=== PATIENT | male | born 1955 | race African-American/Black ===

== ENCOUNTER 2016-10-31 02:46 | Emergency (ER) | payer MEDICARE ==
[~2016-10-31 02:46] MED LIST: ALDACTONE PO; CALAN SR PO; FLAGYL PO; GLUCOTROL XL PO; LEVAQUIN PO; NOVOLIN 70/30 V10 M1; NOVOLIN 70/30 V10 ML INJ; VICODIN 5/1 TAB 5/50 PO
== END 2016-10-31 02:55 | disposition home or self-care (01) ==
LOC: CED 02:46
DX: L03.012 Cellulitis of left finger (principal); I10 Essential (primary) hypertension; E11.9 Type 2 diabetes mellitus without complications; F17.200 Nicotine dependence, unspecified, uncomplicated; Z98.890 Other specified postprocedural states
CPT/HCPCS: 10060; 82947; 99283